=== PATIENT | female | born 1930 | race Caucasian/White ===

== ENCOUNTER 2020-05-21 14:20 | Inpatient (IN) | payer OTHER ==
[~2020-05-21] VITALS: Ht 165.1 cm; Wt 61.6 kg
--- NOTE | ~2020-05-21 | EMS ---
[address] [address] EMS Patient Care Report Name: OLIVIA ALVAREZ Room #: REG SHAWN Aceves#: [id number] Admission: 05/21/20 Attend Phys: Discharge: Date of : [birth year] Report #: [id number] THIS REPORT FOR: //name// Report Transmitted: 05/21/2020 14:52 EMS Care Summary [facility] Incident [id number] @ 05/21/2020 13:30 Incident Location [address] [place] [address] Patient OLIVIA ALVAREZ Female, 89 Years 1930 Patient Address [address] [place] [address] Patient History Hypertension (HTN),Irritable Bowel Syndrome,Anxiety,Hypothyroidism, Patient Allergies Penicillin allergy,Sulfa,Prednisone,Tramadol, Patient Medications Atorvastatin, Cipro, Trazodone, Buspirone, Lisinopril, Chief Complaint Not Feeling Well Disposition Transported No Lights/[place] Reason Breathing Problem Transported To [facility] Narrative [id number] was dispatched to the listed location for a code 1 difficulty breathing. Upon arrival patient was lying supine in her bed in the care of staff and [facility] [address] [place] [address] EMS Patient Care Report Name: OLIVIA ALVAREZ Room #: CARLTON Aceves#: [id number] Admission: 05/21/20 Attend Phys: Discharge: Date of : [birth year] Report #: [id number] [facility]. Staff stated that the patient had been having N/V/D for the past 2 days and that she woke up that morning feeling dizzy. Staff stated that the patient had not been eating or drinking well for the past few days and family was worried about a possible onset of dementia. Staff mentioned that the patient had been having anxiety attacks intermittent over the last few days and had been hyperventilating. Patient stated that she "just does not feel well" and was feeling dizzy. EMS and Fire were able to assist patient from her bed to the cot without incident. Patient was given 500cc of NS due to the diarrhea and poor eating and drinking. Patient denied any chest pain, abd. pain, SOB or recent illnesses. Patient would often repeat questions to EMS as staff stated that she had been doing more of lately. Patient denied feeling nauseous en route so no zofran was given. Initial Vitals @13:57P: 59,SpO2: 99,OK Suspected: false @14:03P: 61,BP: 141/77, @13:52P: 65,R: 18,BP: 166/74,Pain: 0/10,GCS: 14,Temp: 98F,Glucose: 125,SpO2: 98,Revised Trauma: 12, Assessments @13:41MENTAL:Person Oriented,Time Oriented,Event Oriented,Place Oriented,SKIN:HEENT:Head/Face: No Abnormalities,Neck/Airway: No Abnormalities,LUNG SOUNDS:General: Diarrhea,General: Nausea,General: Vomiting,Left Upper: No Abnormalities,Right Upper: No Abnormalities,Left Lower: No Abnormalities,Right Lower: No Abnormalities,ABDOMEN:General: Diarrhea,General: Nausea,General: Vomiting,Left Upper: No Abnormalities,Right Upper: No Abnormalities,Left Lower: No Abnormalities,Right Lower: No Abnormalities,PELVIS//GI:EXTREMITIES:Left Arm: No Abnormalities,Right Arm: No Abnormalities,Left Leg: No Abnormalities,Right Leg: No Abnormalities,PULSE:NEURO: Impression Malaise Procedures @13:5712-Lead ECGResponse: UnchangedSucceeded Timeline 13:28,Call Received 13:28,Psap Call 13:30,Dispatched 13:30,En Route 13:36,On Scene 13:40,At Patient 13:52,BP: 166/74 M,PULSE: 65,RR: 18 R,SPO2: 98 Ox,ETCO2: ,B,PAIN: 0,GCS: 14, [address] [address] EMS Patient Care Report Name: OLIVIA ALVAREZ Room #: REG SHAWN Aceves#: [id number] Admission: 05/21/20 Attend Phys: Discharge: Date of : [birth year] Report #: [id number] 13:57,12-Lead ECG,Response: UnchangedSucceeded, 13:57,BP: / M,PULSE: 59,RR: R,SPO2: 99 Ox,ETCO2: ,BG: ,PAIN: ,GCS: , 13:59,Depart Scene 14:03,BP: 141/77 M,PULSE: 61,RR: R,SPO2: Ox,ETCO2: ,BG: ,PAIN: ,GCS: , 14:07,At Destination 14:34,Call Closed Disclaimer v1.1 Copyright 2020 [employer] This EMS Care Summary contains data elements from the applicable legal record (which may be displayed differently). It is designed to provide pertinent information for the following purposes: continuity of care, clinical quality, and state data reporting. The complete legal record is available to ED staff and administrators of the receiving hospital in [employer] Patient Tracker. All data is provided "as is."
[2020-05-21 14:37] VITALS: BP 148/53
[2020-05-21 15:55] LABS: ABSOLUTE NEUTROPHILS 8.4 thou/uL (1.4-8.2); BASOPHILS 0.4 % (0.0-2.0); EOSINOPHILS 1.4 % (0.0-3.0); HEMATOCRIT 32.7 % (37.0-47.0); HEMOGLOBIN 11.2 gm/dL (12.0-15.0); MCH 31.4 pg (26.0-34.0); MCHC 34.3 g/dL (28.0-37.0); MCV 91.5 fL (80.0-100.0); MONOCYTES 7.1 % (1.0-8.0); PLATELET COUNT 216 thou/uL (150-400); POLYS 75.1 % (36.0-66.0); RBC 3.57 mil/uL (4.20-5.00); RDW 13.5 % (10.5-14.5); WBC 11.2 thou/uL (4.0-11.0)
[2020-05-21 16:11] LABS: ANION GAP 11 mmol/L (7-16); BUN 19 mg/dL (7-18); CHLORIDE 105 mmol/L (98-107); CO2 21 mmol/L (21-32); CREATININE 1.5 mg/dL (0.6-1.0); GLUCOSE 102 mg/dL (74-106); LIPASE 151 U/L (73-393); POTASSIUM 3.7 mmol/L (3.5-5.1); SGOT 38 U/L (15-37); SGPT 21 U/L (30-65); SODIUM 137 mmol/L (136-145); TOTAL BILIRUBIN 0.4 mg/dL (0.2-1.0); TROPONIN-I <0.06 ng/mL (<0.06)
[2020-05-21 16:16] LABS: CALCIUM 8.6 mg/dL (8.5-10.1)
[2020-05-21 17:55] VITALS: BP 135/63
[2020-05-21] MEDS ORDERED: TYLENOL325 MG PO (18:08)
[2020-05-21] MEDS ORDERED: LIPITOR40 MG (18:08)
[2020-05-21] MEDS ORDERED: BENADRYL25 MG (18:09)
[2020-05-21] MEDS ORDERED: BUSPIRONE HCL10 MG (18:10)
[2020-05-21 18:39] VITALS: BP 135/63
[2020-05-21 18:57] LABS: FOLIC ACID 25.3 ng/mL (8.6-58.9); TSH 2.888 uIU/mL (0.358-3.740)
[2020-05-21 19:15] VITALS: BP 124/52
--- NOTE | 2020-05-21 20:11 | NUR ---
Patient arrived in the unit at 1843. Pt transferred to bed safely. Telemetry placed on patient. Report given to night auditor nurse for admission.
--- NOTE | 2020-05-22 03:51 | NUR ---
Assumed pt care at 1900. Admitted from ED with weakness/Divertulitis. A/OX2,able to make needs known, confused/forgetful. Denies pain on assessment, or N/V. Pt had a hard BM @ HS no diarrhea noted. Voiding per BSC with AX1. Pt very anxious, asking multiple times who brought her here and phsysically observed shaking,Vistaril given with some relief reported but pt woke up again requesting for something to help her calm down;Cecilia TYPEWRITER TESTER notified N.o for Haldol given and administered with relief noted. Fall precautions implemented and pt calling accordingly for help. IVF infusing via RAC w/o problems. NSR on telemetry.
[2020-05-22 05:40] VITALS: BP 112/54
[2020-05-22 06:25] LABS: BASOPHILS 0.7 % (0.0-2.0); EOSINOPHILS 2.4 % (0.0-3.0); HEMATOCRIT 28.5 % (37.0-47.0); HEMOGLOBIN 9.6 gm/dL (12.0-15.0); LYMPHOCYTES 17.5 % (24.0-44.0); MCH 31.5 pg (26.0-34.0); MCHC 33.7 g/dL (28.0-37.0); MCV 93.4 fL (80.0-100.0); MONOCYTES 7.4 % (1.0-8.0); PLATELET COUNT 187 thou/uL (150-400); RBC 3.05 mil/uL (4.20-5.00); RDW 13.5 % (10.5-14.5); WBC 8.3 thou/uL (4.0-11.0)
[2020-05-22 06:36] LABS: CALCIUM 8.4 mg/dL (8.5-10.1); CREATININE 1.2 mg/dL (0.6-1.0); MAGNESIUM 1.7 mg/dL (1.8-2.4); POTASSIUM 3.8 mmol/L (3.5-5.1)
[2020-05-22 07:00] VITALS: BP 117/55
[2020-05-22] MEDS ORDERED: CALCIUM 600 +1 EAC1 PO (08:24)
[2020-05-22] MEDS ORDERED: QUESTRAN PACKET4 GM PO (08:25)
[2020-05-22] MEDS ORDERED: CIPRO250 M2 PO (08:27)
[2020-05-22] MEDS ORDERED: CULTURELLE KID1 EAC1 PO (08:28)
[2020-05-22] MEDS ORDERED: LEXAPRO 10 MG T10 M2 PO (08:32)
[2020-05-22] MEDS ORDERED: LEVO-T100 MCG PO (08:36)
[2020-05-22] MEDS ORDERED: MUCUS ER1200 MG PO (08:36)
[2020-05-22] MEDS ORDERED: LISINOPRIL2.5 MG PO (08:38)
[2020-05-22] MEDS ORDERED: LOPERAMIDE 2 MG2 M1 PO (08:41)
[2020-05-22] MEDS ORDERED: MELATONIN3 M1 PO (08:43)
[2020-05-22] MEDS ORDERED: MIRALAX119 GM PO (08:45)
[2020-05-22] MEDS ORDERED: NASACORT10.8 ML NARES (08:49)
[2020-05-22] MEDS ORDERED: DESYREL150 MG PO (08:51)
[2020-05-22] MEDS ORDERED: TYLENOL 8 HOUR650 MG PO (08:52)
[2020-05-22] MEDS ORDERED: DOXEPIN HCL PO (08:54)
--- NOTE | 2020-05-22 14:18 | NUR ---
PT ADMITTED RELATED TO WEAKNESS,NAUSEA/VOMITING,DIVERTICULITIS. CM REVIEWED CHART AND SPOKE WITH CARE TEAM. CM ATTEMTPED PC TO PT'S ROOM WITH NO ANSWER. CM CALLED AND SPOKE WITH PT'S SON/DPUSAMA VALENCIA. HE INDICATED THAT PT HAD BEEN LIVING AT [facility] FOR THE LAST YEAR AND A HALF. HE INDICATED THAT PT HAD BEEN FAIRLY INDEPENENT WITH GAIT AND ADLS UP UNTIL 9 DAYS AGO. HE INDICATED THAT PT HADN'T BEEN OUT OF BED SINCE THEN. HE INDICATED THAT PT DOESN'T HAVE A PCP BUT THAT INSPECTOR PACKER AT [facility] FOLLOWES PT'S CARE. HE INDICATED THAT HE WOULD BE RECEPTIVE TO POST ACUTE CARE STAY IF INDICATED UPON DC. CM EMAILED HIM A SNF LIST FOR REVIEW. RICK SPOKE WITH NURSE DOROTA AT [facility] AND PROVIDED UER UPDATE. COVID TEST ORDERED. CM TO FOLLOW INDICATED WITH DC PLANNING.
[2020-05-22 15:10] VITALS: BP 112/46
--- NOTE | 2020-05-22 15:41 | NUR ---
ASSUMED PT CARE THIS AM. PT VSS, A&OX1-2. PT COMPLAINED OF NAUSEA AND PAIN THIS AM, RESPONSIVE TO MEDS GIVEN. NO FURTHER COMPLAINTS OF PAIN OR NAUSEA. PT CONTINENT OF B&B. TAKES MEDS WHOLE. UP WITH ASSIST OF 1. IV PATENT. PT ANXIOUS, APPRECIATES COMPANY TO TALK TO. PT ENCOURAGED TO DRINK FLUIDS.
[2020-05-22 20:45] VITALS: BP 114/49
--- NOTE | 2020-05-23 04:02 | NUR ---
patient aox1 confused and forgetful. patient had several bowel movement this shift. patient denied n/v. new iv on rfa. patient need maximum assistance with adl, bed mobility, transfer and toileting. patient incontient this shift pericare and barrier cream applied as needed. patient in bed asleep at this time breathing regular and unlaboured.
[2020-05-23 05:40] LABS: HEMATOCRIT 27.7 % (37.0-47.0); HEMOGLOBIN 9.4 gm/dL (12.0-15.0); MCH 31.9 pg (26.0-34.0); MCHC 33.8 g/dL (28.0-37.0); MCV 94.3 fL (80.0-100.0); RBC 2.94 mil/uL (4.20-5.00); RDW 13.6 % (10.5-14.5); WBC 8.3 thou/uL (4.0-11.0)
[2020-05-23 07:18] VITALS: BP 113/50
[2020-05-23 09:12] LABS: CALCIUM 7.8 mg/dL (8.5-10.1); CREATININE 1.2 mg/dL (0.6-1.0); POTASSIUM 4.1 mmol/L (3.5-5.1)
--- NOTE | 2020-05-23 14:30 | NUR ---
PT'S SON VISITE THIS AM. HE INDICATED THAT THEY ARE INTERESTED IN CONSULT FOR POSSIBLE ADMISSION TO [facility]. PROSTHETIC AIDE TO SEE PT. CM TO FOLLOW INDICATED WITH DC PLANNING.
[2020-05-23 15:54] VITALS: BP 127/53
--- NOTE | 2020-05-23 20:03 | NUR ---
Assumed pt care this am, VS stable son was at the bed side. Was able to work with the PT and OT. Stool sample was not collected no bm for this shift. No nausea and vomiting has been noted. Tremors noted. POC followed with no signs or verbalizations of distress noted. Endorsed to the night nurse./
[2020-05-23 20:44] VITALS: BP 124/55
--- NOTE | 2020-05-24 02:08 | NUR ---
PATIENT AOX1 CONFUSED AND FORGETFUL. PATIENT DENIED PAIN OR DISCOMFORT. PATIENT USES BEDSIDE COMMODE THIS SHIFT. FALL PRECAUTION IN PLACE. PATIENT HAD HIGH ANXIETY TBHIS SHIFT PRN VISTRIL GIVEN PER DR. ORDER. PATIENT IN BED ASLEEP AT THIS TIME BREATHING REGULAR AND UNLABOURED.
[2020-05-24 05:48] LABS: HEMATOCRIT 27.5 % (37.0-47.0); HEMOGLOBIN 9.2 gm/dL (12.0-15.0); MCH 31.3 pg (26.0-34.0); MCHC 33.6 g/dL (28.0-37.0); MCV 93.2 fL (80.0-100.0); RBC 2.95 mil/uL (4.20-5.00); RDW 13.6 % (10.5-14.5); WBC 7.2 thou/uL (4.0-11.0)
[2020-05-24 05:57] LABS: CALCIUM 8.2 mg/dL (8.5-10.1); CREATININE 1.1 mg/dL (0.6-1.0); MAGNESIUM 1.6 mg/dL (1.8-2.4); POTASSIUM 3.3 mmol/L (3.5-5.1)
[2020-05-24 09:18] VITALS: BP 124/55
--- NOTE | 2020-05-24 12:12 | NUR ---
Assumed pt care at 7am.Assessment completed.vss.Pt up in chair for breakfast and am meds.Dr Lazaro here, dc order noted but senior case manager awaiting for acceptance from [facility].Pt son notified this am while visiting mom.Fall bundle in place.No verbal c/o. Will continue to monitor.
--- NOTE | 2020-05-24 13:50 | NUR ---
CM SPOKE WITH PHYSICIAN AND PT'S SON THIS AM. SNF RECOMMENDED. SON ASKED THAT REFERRAL BE SENT TO [facility] REFERRALS SENT. [facility] DOESN'T HAVE BEDS UNTIL WEDNESDAY. [facility] NOT TAKING NEW PATIENTS DUE TO COVID. SON ASKED THAT REFERRAL BE SENT TO [facility]. [facility] CAN ACCEPT. CM NOTIFED PT AND SON THEY ARE AWARE AND AGREEABLE. CHART COPY ORDERED. ORDERS TO BE FAXED ONCE COMPLETED. NURSE GIVEN NUMBER FOR REPORT. [facility] ARRANGED FOR 1500. NO OTHER CM INTERVENTION INDICATED. CASE CLOSED.
[2020-05-24] MEDS ORDERED: CIPRO250 M2 PO (13:59)
[2020-05-24] MEDS ORDERED: FLAGYL500 M1 PO (14:00)
[2020-05-24] MEDS ORDERED: INDERAL LA60 MG PO (14:01)
[2020-05-24] MEDS ORDERED: VITAMIN D325 MC1 PO (14:02)
== END 2020-05-24 15:55 | DRG 91 ==
LOC: ER 14:20 → 4W 17:34 → EROBS 17:34 → 4W 18:39
PROVIDERS: Internal Medicine; Nurse Practitioner; Physician Assistant; ADMIT Hospitalist; ATTEND Hospitalist
DX: G92 Toxic encephalopathy (principal); N17.0 Acute kidney failure with tubular necrosis; K57.32 Diverticulitis of large intestine without perforation or abscess without bleeding; E44.0 Moderate protein-calorie malnutrition; Z20.828 Contact with and (suspected) exposure to other viral communicable diseases; F32.9 Major depressive disorder, single episode, unspecified; E78.5 Hyperlipidemia, unspecified; F41.9 Anxiety disorder, unspecified; E03.9 Hypothyroidism, unspecified; I10 Essential (primary) hypertension; D64.9 Anemia, unspecified; G47.00 Insomnia, unspecified; E55.9 Vitamin D deficiency, unspecified; G25.0 Essential tremor; Z90.710 Acquired absence of both cervix and uterus; Z88.0 Allergy status to penicillin; Z88.2 Allergy status to sulfonamides; Z88.7 Allergy status to serum and vaccine; Z88.8 Allergy status to other drugs, medicaments and biological substances; Z79.899 Other long term (current) drug therapy; Z68.22 Body mass index [BMI] 22.0-22.9, adult
CPT/HCPCS: 10045